=== PATIENT | male | born 2005 | race Caucasian/White ===

== ENCOUNTER 2024-11-30 16:26 | Inpatient (IN) | payer BC ==
[2024-11-30] MEDS ORDERED: ONDANSETRON 4 MG/2 ML VIAL IV PRN (16:39)
[2024-11-30] MEDS ORDERED: MORPHINE 2 MG/ML SYR IV PRN (16:39)
[2024-11-30] MEDS: NA CHLORIDE 0.9% 1,000 ML IV SCH (17:00)
[2024-11-30] MEDS: Ringers Lactate 1,000 ML IV ONE ×2 (17:19→19:26)
--- NOTE | 2024-11-30 17:21 | P.CNS ---
Date of Consult: 11/30/24 Reason for consult: Abdominal pain History of present illness: Patient is a 19-year-old gentleman who presents with acute onset of diffuse periumbilical abdominal pain localizing to the right lower quadrant which started this morning associated with anorexia and nausea. Patient denies vomiting, diarrhea, constipation, blood per rectum, dysuria, hematuria, sore throat, runny nose, headaches, dizziness, chest pain, fever or chills. Patient has never had pain like this before. Review of systems: Otherwise unremarkable Past medical history: Negative Past surgical history: Left clavicle surgery and tonsillectomy and adenoidectomy Allergies: None Social history: Patient vapes and drinks occasionally Family history: Patient is adopted Vital signs: Stable, afebrile Physical exam: Awake, alert and oriented x 3 Head and neck exam: No neck masses, no JVD, throat clear neck supple Chest: Clear Heart: S1-S2 Abdomen: Soft, nondistended, positive bowel sounds, positive right lower quadrant tenderness with rebound. No evidence of rigidity or guarding. No Rovsing sign. Extremity: Neuro vascular intact Neuro: Nonfocal Diagnostic data: Reviewed. Patient has slight leukocytosis with CT evidence of acute appendicitisuncomplicated Assessment: Acute appendicitis Plan/recommendation: Admit, n.p.o., IV fluids, IV antibiotics and to the OR for laparoscopic appendectomy possible open. Patient understands risk, benefits and alternatives and agrees to procedure. CC:
[2024-11-30] MEDS ORDERED: MIDAZOLAM HCL 2 MG/2 ML INJ ONE (17:28)
[2024-11-30] MEDS ORDERED: FENTANYL CITR 100 MCG/2 ML ONE (17:28)
--- NOTE | 2024-11-30 17:29 | P.HP ---
Certification for Inpatient Patient admitted to: Observation With expected LOS: <2 Midnights Patient will require the following post-hospital care: None Practitioner: I am a practitioner with admitting privileges, knowledge of patient current condition, hospital course, and medical plan of care. Services: Services provided to patient in accordance with Admission requirements found in Title 42 Section 412.3 of the Code of Federal Regulations Patient History Date of Service: 11/30/24 Reason for admission: Acute appendicitis History of Present Illness: 19-year-old otherwise healthy male presented to outside hospital for abdominal pain which started at around 3 AM this morning. His white blood cell count at their facility was 11.[address] scan showed acute appendicitis. Patient was transferred from the stand-alone emergency department to our facility for further management of acute appendicitis. He is interviewed in the PACU area before having surgery. Allergies No Known Allergies Allergy (Unverified 11/30/24 16:53) - Past Medical/Surgical History -: None -: Clavicle surgery Psychosocial/ Personal History: Lives at home with family - Social History Smoking Status: Never smoker (Vapes) Alcohol use: Yes CD- Drugs: No Caffeine use: Yes Place of Residence: Home Review of Systems 10-point ROS is otherwise unremarkable Gastrointestinal: Nausea, Abdominal Pain Physical Examination - Physical Exam General: Alert, In no apparent distress, Oriented x3 HEENT: Atraumatic, PERRLA, EOMI Neck: Supple, 2+ carotid pulse no bruit Respiratory: Clear to auscultation bilaterally, Normal air movement Cardiovascular: Regular rate/rhythm, Normal S1 S2 Gastrointestinal: Normal bowel sounds, Tenderness (Right lower quadrant tenderness) Musculoskeletal: No tenderness Integumentary: No rashes Neurological: Normal speech, Normal affect Assessment and Plan - Plan Assessment: Acute uncomplicated appendicitis Plan: Acute uncomplicated appendicitis Patient being taken to the OR now for likely laparoscopic appendectomy N.p.o., IVF, as needed pain medications antiemetics General Surgery consultation/management DVT PPX: SCD Code status: Full code Discharge Plan: Home Plan to discharge in: 24 Hours - Advance Directives Does patient have a Living Will: No Does patient have a Durable POA for Healthcare: No - Code Status/Comfort Care Code Status Assessed: Yes (Full code) Critical Care: No Time Spent Managing Pts Care (In Minutes): 65
[2024-11-30] MEDS ORDERED: KETOROLAC 30 MG/ML INJ ONE (17:31)
[2024-11-30] MEDS ORDERED: ROCURONIUM 50 MG/5 ML VIAL IV ONE (17:31)
[2024-11-30] MEDS ORDERED: NEOSTIGMINE 1 MG/ML -10 ML VIAL ONE (17:32)
[2024-11-30] MEDS ORDERED: LIDOCAINE 1% MPF 5 ML VIAL ONE (17:32)
[2024-11-30] MEDS ORDERED: GLYCOPYRROLATE 0.2 MG/ML SYR ONE (17:32)
--- NOTE | 2024-11-30 18:41 | P.OP ---
Date of Service: 11/30/24 Preop diagnosis: Acute appendicitis Postop diagnosis: Acute appendicitis with mild suppuration Procedure performed: Laparoscopic appendectomy Surgeon: Mac French MD Rehab Aide: Alyssa WALTON Estimated blood loss: Minimal Specimen: Appendix Findings: As above Anesthesia: General Complications: None Drains: None Fluids and blood products: Nonapplicable Disposition: Recovery room Operative note: Patient brought to the OR and placed in supine position. General anesthesia began. Patient prepped and draped in usual sterile fashion. Marcaine 0.5% infiltrated locally. 15 blade used to make a 1 cm supraumbilical midline incision. Subcu tissue divided. Bleeding controlled with cautery. Fascia identified and divided. #1 Vicryl stay suture placed. Peritoneal cavity entered with sharp and blunt dissection. 12 mm trocar placed into the peritoneal cavity under direct vision. Pneumoperitoneum established. Two 5 mm trocars placed under direct vision. 1 trocar placed in the suprapubic region and another in the left lower quadrant. Laparoscopy revealed some straw-colored fluid in the pelvis which was aspirated and irrigated until clear. The appendix was identified in the right lower quadrant. He had evidence of mild suppuration. Mesoappendix and base of the appendix clearly identified. LigaSure used to divide the mesoappendix. Endo LAKIA stapling device used to divide the base of the appendix and cecum. The appendix retrieved to the umbilicus via Endo Catch bag. Right lower quadrant pelvis irrigated again. Effluent clear. No evidence of bleeding or bowel injury appreciated. All trocars removed under direct vision. Stay sutures tied to each other to reapproximate the fascial defect. Subcutaneous wound irrigated and bleeding controlled cautery. 3-0 chromic used to reapproximate subcutaneous tissue and close skin. Sterile dressing applied. Patient awakened and taken to recovery room in good general condition. CC:
[2024-11-30] MEDS: MEPERIDINE HCL 25 MG/ML SYR ONE (19:01)
[2024-11-30] MEDS: HYDROMORPHONE HCL 1 MG/ML INJ ONE (19:21)
[2024-11-30] MEDS: ONDANSETRON 4 MG/2 ML VIAL ONE (19:25)
[2024-11-30] MEDS: PIPER TAZO 3.375 GM in NA CHLORIDE 0.9% 100 ML IV SCH (20:24)
[2024-11-30 20:25] VITALS: BMI 26.4
[2024-12-01] MEDS: PIPER TAZO 3.375 GM in NA CHLORIDE 0.9% 100 ML IV SCH (03:16)
[2024-12-01 04:01] VITALS: TEMP 97.5
[2024-12-01 05:03] LABS: Absolute Lymphocytes (CBC) 0.7 K/uL (0.7-4.9); Hematocrit 38.1 % (39.6-49.0); Hemoglobin 13.7 g/dL (13.6-17.9); MCH 31.5 pg (27.0-35.0); MCHC 35.9 g/dL (32.0-36.0); MCV 87.9 fL (80-100); MPV 7.9 fL (7.6-11.3); Nucleated RBC Absolute Count 0.0 (0-0); Nucleated Red Blood Cells % 0.0 % (0-0); RBC Red Blood Cell Count 4.34 M/uL (4.33-5.43); White Blood Count 8.80 thou/uL (4.3-10.9)
[2024-12-01 05:29] LABS: Differential Total Cells Count 100; Segmented Neutrophils 73 % (40-80)
[2024-12-01 05:30] LABS: Blood Morphology Comment NOT SEEN (NOT SEEN)
[2024-12-01] MEDS: HYDROCODONE/APAP 7.5/325 MG TAB PO PRN (07:59)
[2024-12-01 08:44] VITALS: BP 118/58
[2024-12-01] MEDS: HYDROMORPHONE HCL 1 MG/ML INJ IV PRN (08:58)
[2024-12-01 10:02] VITALS: O2SAT 95
--- NOTE | 2024-12-01 10:20 | P.DS ---
Admission Date: 11/30/24 Discharge Date: 12/01/24 Disposition: ROUTINE DISCHARGE Discharge Condition: GOOD Reason for Admission: Acute appendicitis Vital Signs/Physical Exam: Temp Pulse Resp BP Pulse Ox 97.5 F 46 L 22 H 118/58 L 96 12/01/24 08:00 12/01/24 08:00 12/01/24 08:58 12/01/24 08:00 12/01/24 08:58 Laboratory Data at Discharge: WBC 8.80 thou/uL (4.3-10.9) 12/01/24 04:52 Hgb 13.7 g/dL (13.6-17.9) 12/01/24 04:52 Hct 38.1 % (39.6-49.0) L 12/01/24 04:52 Plt Count 235 thou/uL (152-406) 12/01/24 04:52 Home Medications: Amox/Clavulanate [Augmentin 875-125 Tab] 875 mg PO BID 5 Days #10 tab 12/01/24 traMADol HCL [Ultram*] 50 mg PO Q6H PRN 5 Days #15 tab 12/01/24 New Medications: Amox/Clavulanate [Augmentin 875-125 Tab] 875 mg PO BID 5 Days #10 tab traMADol HCL [Ultram*] 50 mg PO Q6H PRN 5 Days #15 tab PRN Reason: Pain Physician Discharge Instructions: May shower Remove outer dressing after showering a.m. Keep Steri-Strips on at all times Resume home meds and diet Activity as tolerated, no heavy lifting or strenuous exercise Incentive spirometry as instructed Antibiotics and pain meds per the hospitalist team Follow-up my office 1 week, call for appointment Diet: Regular Activity: No lifting more than 10 lbs Followup: Mac French MD [ACTIVE - CAN ADMIT] - 1 Week
--- NOTE | 2024-12-01 10:44 | PN ---
Date of Progress Note: 12/01/2024 Subjective: The patient with no complaints. Objective: Vital Signs: Stable. Afebrile. Abdomen: Benign. Dressing is clean, dry, intact Laboratory Data: White count is normal. Assessment: Status post laparoscopic appendectomy. Plan: The patient cleared from Surgery for discharge. Discharge instructions given. Patient is to follow up with me in 1 week. Antibiotics and pain medicine per the hospitalist team. /MODL Voice ID: [id number] Report ID: [id number]
== END 2024-12-01 11:24 | disposition home or self-care (01) | DRG 399 ==
LOC: 2ND 16:51
PROVIDERS: ADMIT Hospitalist; ATTEND Internal Medicine
PROC: 0DTJ4ZZ Resection of Appendix, Percutaneous Endoscopic Approach (ICD-10-PCS; principal; 2024-11-30 17:30)
DX: K35.80 Unspecified acute appendicitis (principal); Z98.890 Other specified postprocedural states; F17.290 Nicotine dependence, other tobacco product, uncomplicated; Z79.2 Long term (current) use of antibiotics; Z79.899 Other long term (current) drug therapy
CPT/HCPCS: 36415; 85025; 88304; 94010; J1100; J1171; J2003; J2175; J2250; J2405; J2543; J2704; J2710; J3010; J7030; J7120